=== PATIENT | male | born 1990 | race Hispanic/Latino ===

== ENCOUNTER 2018-05-10 21:40 | Emergency (ER) | payer OTHER ==
[2018-05-10] MEDS ORDERED: Sodium Chloride 0.9% 1,000 ML IV STA (22:42)
--- NOTE | 2018-05-10 22:47 | ED PDOC ---
HPI: Psych/Substance Abuse Chief Complaint (Provider): psych eval History Per: Patient, Family History/Exam Limitations: intoxication Additional Complaint(s): 27 y/o male brought in by EMS with family for psych evaluation. Patient states he has been battling depression for years but has never reached out for help until a few months ago; and is now going to therapy. PAtient states for the last week specifically his depression has worsened, and he has been binge dri nking in attempts to self-medicate. Patient states he has had suicidal ideations in past, but none at present. Denies homicidal ideations, hallucinations, acute physical complaints. <Alexandra López - Last Filed: 05/11/18 05:45> <Mike De La Fuente - Last Filed: 05/11/18 06:43> Time Seen by Provider: 05/10/18 22:33 Chief Complaint (Nursing): Psychiatric Evaluation Past Medical History Reviewed: Historical Data, Nursing Documentation, Vital Signs Vital Signs: Last Vital Signs Temp 98.5 F 05/10/18 21:41 Pulse 127 H 05/10/18 21:41 Resp 18 05/10/18 21:41 BP 154/96 H 05/10/18 21:41 Pulse Ox 97 05/10/18 21:41 - Medical History PMH: Depression - Surgical History Surgical History: No Surg Hx - Family History Family History: States: No Known Family Hx - Living Arrangements Living Arrangements: Alone - Social History Current smoker - smoking cessation education provided: No Alcohol: Occasional Drugs: Cocaine (socially) <Alexandra López - Last Filed: 05/11/18 05:45> Vital Signs: Last Vital Signs Temp 98.5 F 05/10/18 21:41 Pulse 97 H 05/11/18 04:05 Resp 18 05/11/18 04:05 BP 114/66 05/11/18 04:05 Pulse Ox 97 05/11/18 05:49 <Mike De La Fuente - Last Filed: 05/11/18 06:43> - Allergies Allergies/Adverse Reactions: Allergies Allergy/AdvReac Type Severity Reaction Status Date / Time No Known Allergies Allergy Verified 05/10/18 22:41 Review of Systems ROS Statement: Except As Marked, All Systems Reviewed And Found Negative Psych: Positive for: Anxiety, Depression <Alexandra López - Last Filed: 05/11/18 05:45> Physical Exam - Reviewed Nursing Documentation Reviewed: Yes Vital Signs Reviewed: Yes - Physical Exam Appears: Positive for: Well, Non-toxic, Uncomfortable (tearful) Head Exam: Positive for: ATRAUMATIC, NORMAL INSPECTION, NORMOCEPHALIC Skin: Positive for: Normal Color Eye Exam: Positive for: Normal appearance ENT: Positive for: Normal ENT Inspection Cardiovascular/Chest: Positive for: Regular Rate, Rhythm Respiratory: Positive for: Normal Breath Sounds Gastrointestinal/Abdominal: Positive for: Normal Exam Back: Positive for: Normal Inspection Extremity: Positive for: Normal ROM Neurologic/Psych: Positive for: Alert, Oriented (x3) <Alexandra López - Last Filed: 05/11/18 05:45> - Laboratory Results Result Diagrams: 05/10/18 23:10 05/10/18 23:10 - ECG ECG: Positive for: Viewed By Me (reviewed by ED attending) ECG Rhythm: Positive for: Sinus Rhythm O2 Sat by Pulse Oximetry: 97 - Progress ED Course And Treament: -cbc -cmp -alcohol -urinalysis -urine drug screen -ekg -IV NS bolus -tax associate attorney -crisis eval -Vistaril 1:00 Patient awake; no complaints 3:30 On re-eval, patient becoming irritable as per father; states he does not want to stay. Father states he has not slept since hes been here. Patient requesting something else to help calm him down/sleep. Ativan/Haldol ordered <Alexandra López - Last Filed: 05/11/18 05:45> - Laboratory Results Result Diagrams: 05/10/18 23:10 05/10/18 23:10 Lab Results: Total Bilirubin 0.4 mg/dl (0.2-1.3) 05/10/18 23:10 AST 40 U/L (17-59) 05/10/18 23:10 ALT 33 U/L (21-72) 05/10/18 23:10 Alkaline Phosphatase 63 U/L (38-126) 05/10/18 23:10 Total Protein 8.0 G/DL (6.3-8.2) 05/10/18 23:10 Albumin 4.9 g/dL (3.5-5.0) 05/10/18 23:10 Globulin 3.2 gm/dL (2.2-3.9) 05/10/18 23:10 Albumin/Globulin Ratio 1.5 (1.0-2.1) 05/10/18 23:10 Urine Color Straw (YELLOW) 05/10/18 23:10 Urine Clarity Clear (Clear) 05/10/18 23:10 Urine pH 7.0 (5.0-8.0) 05/10/18 23:10 Ur Specific [place] 1.005 (1.003-1.030) 05/10/18 23:10 Urine Protein Negative mg/dL (NEGATIVE) 05/10/18 23:10 Urine Glucose (UA) Neg mg/dL (NEGATIVE) 05/10/18 23:10 Urine Ketones Negative mg/dL (NEGATIVE) 05/10/18 23:10 Urine Blood Negative (NEGATIVE) 05/10/18 23:10 Urine Nitrate Negative (NEGATIVE) 05/10/18 23:10 Urine Bilirubin Negative (NEGATIVE) 05/10/18 23:10 Urine Urobilinogen 0.2-1.0 mg/dL (0.2-1.0) 05/10/18 23:10 Ur Leukocyte Esterase Neg Yancy/uL (Negative) 05/10/18 23:10 <Mike De La Fuente Filed: 05/11/18 06:43> Medical Decision Making Medical Decision Makin Patient is signed out to Dr. Webber, pending sobriety and crisis evaluation. Scribe Attestation: Documented by Heaven Snushine, acting as a scribe for Mike De La Fuente MD. Provider Scribe Attestation: All medical record entries made by the Scribe were at my direction and personally dictated by me. I have reviewed the chart and agree that the record accurately reflects my personal performance of the history, physical exam, medical decision making, and the department course for this patient. I have also personally directed, reviewed, and agree with the discharge instructions and disposition. <Mike De La Fuente Filed: 05/11/18 06:43> Disposition - Disposition Disposition Time: 06:00 Patient Signed Over To: Mike De La Fuente Handoff Comments: pending sobriety, crisis eval <Alexandra López - Last Filed: 05/11/18 05:45> <Mike De La Fuente - Last Filed: 05/11/18 06:43> - Clinical Impression Clinical Impression: Alcohol abuse, Depression - Disposition Condition: STABLE Forms: [facility] (Bulgarian)
[2018-05-10 23:15] LABS: BASO % 0.6 % (0.0-2.0); EOS # 0.1 K/uL (0.0-0.7); EOS % 1.7 % (0.0-4.0); HEMOGLOBIN 16.4 g/dL (12.0-18.0); LYMPH # 2.1 K/uL (1.0-4.3); LYMPH % 39.5 % (20.0-40.0); MEAN CELL VOLUME 90.8 fl (80.0-94.0); MEAN CORPUSCULAR HEMOGLOBIN 30.2 pg (27.0-31.0); MEAN CORPUSCULAR HGB CONC 33.3 g/dL (33.0-37.0); MEAN PLATELET VOLUME 8.6 fl (7.2-11.7); MONO # 0.3 K/uL (0.0-0.8); MONO % 6.4 % (0.0-10.0); NEUT # 2.7 K/uL (1.8-7.0); NEUT % 51.8 % (50.0-75.0); NRBC % 0.2 % (0.0-0.0); RBC 5.43 Mil/uL (4.40-5.90); RED CELL DISTRIBUTION WIDTH 14.4 % (11.5-14.5); WHITE BLOOD COUNT 5.2 K/uL (4.8-10.8)
[2018-05-10 23:18] LABS: URINE BILIRUBIN NEGATIVE (NEGATIVE); URINE BLOOD NEGATIVE (NEGATIVE); URINE CLARITY CLEAR (Clear); URINE COLOR STRAW (YELLOW); URINE GLUCOSE (UA) NEG (NEGATIVE); URINE LEUKOCYTE ESTERASE NEG Leu/uL (Negative); URINE PROTEIN NEGATIVE (NEGATIVE); URINE UROBILINOGEN 0.2-1.0 mg/dL (0.2-1.0)
[2018-05-10 23:28] LABS: ALB/GLOB RATIO 1.5 (1.0-2.1); ALBUMIN 4.9 g/dL (3.5-5.0); ALT/SGPT 33 U/L (21-72); AST/SGOT 40 U/L (17-59); BLOOD UREA NITROGEN 9 mg/dl (9-20); CALCIUM 9.5 mg/dL (8.4-10.2); GFR NON-AFRICAN AMERICAN > 60
[2018-05-10 23:31] LABS: BARBITURATES, UR NEGATIVE (NEGATIVE); BENZODIAZEPINES, UR NEGATIVE (NEGATIVE); OPIATES, UR NEGATIVE (NEGATIVE); PHENCYCLIDINE, UR NEGATIVE (NEGATIVE)
--- NOTE | 2018-05-11 07:11 | ED PDOC ---
- Laboratory Results Result Diagrams: 05/10/18 23:10 05/10/18 23:10 Lab Results: Total Bilirubin 0.4 mg/dl (0.2-1.3) 05/10/18 23:10 AST 40 U/L (17-59) 05/10/18 23:10 ALT 33 U/L (21-72) 05/10/18 23:10 Alkaline Phosphatase 63 U/L (38-126) 05/10/18 23:10 Total Protein 8.0 G/DL (6.3-8.2) 05/10/18 23:10 Albumin 4.9 g/dL (3.5-5.0) 05/10/18 23:10 Globulin 3.2 gm/dL (2.2-3.9) 05/10/18 23:10 Albumin/Globulin Ratio 1.5 (1.0-2.1) 05/10/18 23:10 Urine Color Straw (YELLOW) 05/10/18 23:10 Urine Clarity Clear (Clear) 05/10/18 23:10 Urine pH 7.0 (5.0-8.0) 05/10/18 23:10 Ur Specific [place] 1.005 (1.003-1.030) 05/10/18 23:10 Urine Protein Negative mg/dL (NEGATIVE) 05/10/18 23:10 Urine Glucose (UA) Neg mg/dL (NEGATIVE) 05/10/18 23:10 Urine Ketones Negative mg/dL (NEGATIVE) 05/10/18 23:10 Urine Blood Negative (NEGATIVE) 05/10/18 23:10 Urine Nitrate Negative (NEGATIVE) 05/10/18 23:10 Urine Bilirubin Negative (NEGATIVE) 05/10/18 23:10 Urine Urobilinogen 0.2-1.0 mg/dL (0.2-1.0) 05/10/18 23:10 Ur Leukocyte Esterase Neg Yancy/uL (Negative) 05/10/18 23:10 - ECG O2 Sat by Pulse Oximetry: 96 (RA) Pulse Ox Interpretation: Normal Medical Decision Making Medical Decision Making: Patient signed out to me by Dr. De La Fuente pending clinical sobriety, crisis evaluation. [id number] Patient seen by crisis team, per Dr. Machado, can be discharged home. Diagnosis: Alcohol abuse disorder On reassessment, patient noted to tolerate PO, with steady gait and is awake, alert and oriented x 3. Patient clinically sober and is stable for discharge home. Scribe Attestation: Documented by Carrol Hinds acting as a scribe for Aura Webber MD Provider Attestation: All medical record entries made by the Scribe were at my direction and personally dictated by me. I have reviewed the chart and agree that the record accurately reflects my personal performance of the history, physical exam, medical decision making, and the department course for this patient. I have also personally directed, reviewed, and agree with the discharge instructions and disposition. Disposition - Clinical Impression Clinical Impression: Alcohol abuse, Depression - POA Present On Arrival: None - Disposition Referrals: Alcoholics Anonymous [Outside] Disposition: Routine/Home Disposition Time: 09:30 Condition: STABLE Additional Instructions: Do not use drugs or alcohol. Follow up with primary medical doctor as needed. Return to the emergency department if symptoms worsen or if new symptoms develop. Instructions: Depression, Alcohol Use - When Is Drinking a Problem? Forms: [facility] (Bengali) Print Language: MOZAMBICAN
[2018-05-11 07:37] VITALS: RESP 19
--- NOTE | 2018-05-11 09:07 | CARD ---
APPROVED REPORT Date of service: 05/10/2018 EKG Measurement Heart [id number] <Conclusion> Sinus rhythm with sinus arrhythmia with short MN Borderline ECG
[2018-05-11 09:40] VITALS: BP 110/78; PULSE 78; TEMP 97.6; O2SAT 98
== END 2018-05-11 09:41 | disposition home or self-care (01) ==
LOC: H.ER 21:40
DX: F10.10 Alcohol abuse, uncomplicated (principal); F32.9 Major depressive disorder, single episode, unspecified
CPT/HCPCS: 80053; 80320; 80324; 80345; 80346; 80349; 80353; 80358; 80361; 81003; 83992; 85025; 93005; 96360; 96372; 99285; J1630; J2060; J7030; Q0177